=== PATIENT | male | born 1935 | race Caucasian/White ===

== ENCOUNTER 2017-12-01 02:42 | Observation (INO) | payer OTHER ==
[~2017-12-01] VITALS: Ht 172.7 cm; Wt 83.9 kg
[2017-12-01 16:53] LABS: ABSOLUTE BASOPHIL COUNT 0.1 /CUMM (0.0-0.2); ABSOLUTE EOSINOPHIL COUNT 0.2 /CUMM (0.0-0.7); ABSOLUTE MONOCYTE COUNT 0.5 /CUMM (0.10-0.60); BASOPHIL % 0.6 % (0.0-2.0); EOSINOPHIL % 1.3 % (0-5); HEMATOCRIT 40.9 % (42-52); MEAN CORPUSCULAR HGB 28.9 PG (27.0-31.0); MEAN CORPUSCULAR HGB CONC 33.3 G/DL (33.0-37.0); MEAN CORPUSCULAR VOLUME 86.9 FL (80.0-94.0); MEAN PLATELET VOLUME 7.5 FL (7.4-10.4); PLATELET COUNT 460 /CUMM (130-400); RBC DISTRIBUTION WIDTH 16.1 % (11.5-14.5); RED BLOOD CELL CT 4.71 /CUMM (4.70-6.10); WHITE BLOOD CELL COUNT 13.8 /CUMM (4.8-10.8)
[2017-12-01 16:54] LABS: GRANULOCYTE % 87.1 % (42.2-75.2)
--- NOTE | 2017-12-01 16:57 | RADIOLOGY REPORT ---
EXAMINATION: XR PORTABLE ABDOMEN CLINICAL INFORMATION: Status post TURP. Abdominal distention. COMPARISON: None. TECHNIQUE: AP view of the abdomen was obtained. FINDINGS: The bowel gas pattern is nonspecific. Feces is noted within the large bowel. The loops of bowel are not distended. The paravertebral soft tissues are unremarkable. There are no acute osseous findings; there are degenerative changes in the lower thoracic and in the lumbar spine. A monitor probe is noted in the inferior pelvis. IMPRESSION: 1. There is no evidence of bowel obstruction or free intra-abdominal air.
--- NOTE | 2017-12-01 17:44 | Operative Report ---
Operative/Inv Procedure Report Surgery Date: 12/01/17 Name of Procedure: Transurethral resection of prostate cystolitholapaxy and possible transurethral resection of bladder tumor Pre-Operative Diagnosis: Very large prostate with obstructing lateral lobes multiple bladder stones and possible area of abnormality on the bladder wall Post-Operative Diagnosis: Very large prostate lateral lobes and very large bladder stones that works excessively hard in nature. Estimated Blood Loss: less than 50ml Surgeon/Caser Up: Yoly Barajas MD Anesthesia: laryngeal mask airway Drains: 20 Swedish [place] Schultz Specimens: Prostate chips and bladder stone fragments Complications: Unable to fragment all the bladder stones due to difficulty in fragmenting them and already 2 hours in surgery with mild abdominal distention Condition: Stable Operative Indication: Obstructive prostate lobes and multiple bladder stones with possible bladder lesion Operative/Procedure Note Note: This is an 82-year-old male with a history of urinary retention and an on office cystoscopy was found to have very large lateral prostate lobes as well as very large multiple bladder stones with possible bladder mucosal abnormality. He was given the options of surgery with the risks benefits and alternatives of resecting the prostate tissue as well as addressing the bladder stones. Given the size and number of the stones it is clear he has had an obstructive prostate for quite some time. The risks benefits and alternatives of the surgery were given to the patient and his in the office as well as in the holding area. Consent was signed. Patient was taken to the operating placed on the operating table in supine position. timeout was performed and IV antibodies were infused. She was placed under LMA anesthesia and was prepped and draped in the standard sterile fashion. Cystoscopy was performed and it was difficult to traverse the penile urethra and prostatic urethra into the bladder. The 2 false passages were created. Once the cystoscope was placed into the bladder a Solo wire was placed for easier navigation. Given the difficulty of the cystoscopy view was decided to do the transurethral resection of the prostate first. This resectoscope was placed following the guidewire was easily placed into the bladder. The left lateral lobe was resected first starting at 3:00 going down the 6:00 and 3:00 to 12:00 o'clock. Point coagulation was performed throughout the surgery. Attention was then turned to the right lateral lobe of the prostate and was resected from 9 to 6:00 followed by 9 to 12:00. Point coagulation was performed again. He had a very large prostate and the resection took over an hour. This was done with bipolar energy and normal saline. Once the prostate was completely resected and all bleeding was stopped attention was then turned to the bladder stones. The resectoscope was removed and throughout the case the Ellik evacuator was used to remove the prostate chips. A cystoscope was placed back into the bladder and the 500+ micron fiber was used to fragment the bladder stones but it was not doing much and was switched out to the 1000 fiber. The bladder stones were chipped away at with the thousand micron fiber and was very laborious. After only chipping away at 1-1/2 of the bladder stones, another hour had passed and it was appropriate to finish the surgery another day. His abdomen was seen to be mildly distended. He was stable throughout the case with no issues. He did have to be switched out to an intubation from the LMA tube but had no cardiac issues. A 20 Swedish Councill catheter was placed over the wire and the balloon was filled with 10 mL of water. Bladder was emptied and patient was cleaned Betadine solution. Patient tolerated procedure well and was transferred to the recovery room in stable condition. Findings: Very large lateral prostate lobes and 3 very large bladder stones that were very hard in consistency and unable to address a bladder lesion as it was too bloody to see clearly. Discharge Disposition: PACU
[2017-12-01 19:17] VITALS: BP 140/70
[2017-12-01] MEDS ORDERED: PRAVASTATIN SOD40 M2 PO (20:39)
[2017-12-01] MEDS ORDERED: FLOMAX0.4 M1 PO (20:42)
[2017-12-01] MEDS ORDERED: TOPROL XL100 M1 PO (20:44)
[2017-12-01] MEDS ORDERED: PRINIVIL10 M1 PO (20:44)
[2017-12-01] MEDS ORDERED: PRAVACHOL40 M1 PO (20:45)
[2017-12-01] MEDS ORDERED: LUMIGAN2.5 ML OPH (20:45)
[2017-12-01 21:30] VITALS: BP 170/90
[2017-12-01 22:09] VITALS: BP 170/90
[2017-12-01 22:10] VITALS: BP 132/80
--- NOTE | 2017-12-01 22:59 | PN- Urology ---
Subjective Subjective: Pt is s/p elective TURP for BPH. He was scheduled to go home, but noted to be significantly distended postoperatively. Supine x-ray in pacu was negative for obstruction or free air and stool was noted in the colon. The decision was made to transfer pt [facility] floor for observation overnight. Upon arrival to the floor, he was stable, but distention seemed to worsen with time and he later c/o acute onset of suprapubic pain. He attempted having a BM, but was unable. He denies nausea. No flatus as of yet. When I arrived, pt was noted to be writhing in pain and tachypneic at 36-40 bpm. Most recent BP was 170/90. Sats 93% on 2L O2 via NC. He was given 2 mg of morphine, which improved symptoms only slightly and for a short time. Davidson remains in place (not on CBI) with 125 cc of bloody output since arrival to the floor. He admits to feeling weak and slightly short of breath, but otherwise denies headache, dizziness, chest pain. Objective Vital Signs and I&Os Vital Signs Date Time Temp Pulse Resp B/P B/P Pulse O2 O2 Flow FiO2 Mean Ox Delivery Rate 12/01 2210 97.3 60 20 132/80 93 12/01 2130 97.9 64 36 170/90 93 Nasal 2.0L Cannula 12/02 1999 93 Nasal 2.0L Cannula 12/01 1916 97.6 58 18 140/70 97 Nasal 2.0L Cannula Intake & Output 12/01 1600 12/01 0800 12/01 0000 11/30 1600 11/30 0800 11/30 0000 Intake Total Output Total Balance Patient 185 lb Weight Physical Exam: Gen: Pt is awake, but appears very uncomfortable and is writhing in pain. He is visibly tachypneic. Alert and oriented. Cardiac: regular Lungs: BS are distant, but clear Abdomen: Significant distention and tympany to percussion are noted across the upper abdomen superior to umbilicus. He is tender only in the suprapubic area, which is nondistended. No rebound tenderness is noted. No BS were heard. Results Last 48 Hours of Labs: Laboratory Tests 12/01 1640 Chemistry Sodium (137 - 145 mmol/L) 139 Potassium (3.5 - 5.1 mmol/L) 5.0 Chloride (98 - 107 mmol/L) 112 H Carbon Dioxide (22 - 30 mmol/L) 20 L Anion Gap (5 - 16) 8 BUN (9 - 20 mg/dL) 15 Creatinine (0.7 - 1.2 mg/dL) 1.0 Estimated GFR (>60 ml/min) > 60 BUN/Creatinine Ratio (7 - 25 %) 15.0 Hematology CBC w Diff NO MAN DIFF REQ WBC (4.8 - 10.8 /CUMM) 13.8 H RBC (4.70 - 6.10 /CUMM) 4.71 Hgb (14.0 - 18.0 G/DL) 13.6 L Hct (42 - 52 %) 40.9 L MCV (80.0 - 94.0 FL) 86.9 MCH (27.0 - 31.0 PG) 28.9 MCHC (33.0 - 37.0 G/DL) 33.3 RDW (11.5 - 14.5 %) 16.1 H Plt Count (130 - 400 /CUMM) 460 H MPV (7.4 - 10.4 FL) 7.5 Gran % (42.2 - 75.2 %) 87.1 H Lymphocytes % (20.5 - 51.1 %) 7.4 L Monocytes % (1.7 - 9.3 %) 3.6 Eosinophils % (0 - 5 %) 1.3 Basophils % (0.0 - 2.0 %) 0.6 Absolute Granulocytes (1.4 - 6.5 /CUMM) 12.0 H Absolute Lymphocytes (1.2 - 3.4 /CUMM) 1.0 L Absolute Monocytes (0.10 - 0.60 /CUMM) 0.5 Absolute Eosinophils (0.0 - 0.7 /CUMM) 0.2 Absolute Basophils (0.0 - 0.2 /CUMM) 0.1 Assessment/Plan Assessment/Plan Pt is an 82 yo M, s/p TURP, admitted for postop distention. Now with worsening distention and increasing pain, only minimally responsive to IV pain meds. -Urgent CT abdomen/pelvis now. -Keep pt npo until source of distention is identified. -Continue IVF. Increase rate to 75cc/hour. -SC heparin and alps for DVT ppx. -Morphine as needed for pain control. -Home meds resumed. -Keep davidson in place. No CBI for now. Will monitor urine output. -This was discussed with Dr. Yadav, who is covering for Dr. Barajas and he agrees with this plan. Core Measures Venous Thromboembolism VTE Risk Factors Surgery No Mechanical VTE Prophylaxis d/t N/A MechProphylax Ordered No VTE Pharm Prophylaxis d/t NA PharmProphylax ordered
--- NOTE | 2017-12-01 23:59 | CT SCAN REPORT ---
EXAMINATION: CT ABDOMEN AND PELVIS WITH CONTRAST CLINICAL INFORMATION: Abdominal pain and distention. COMPARISON: None TECHNIQUE: Multidetector volumetric imaging was performed of the abdomen and pelvis following IV administration of 95 mL of Optiray 320 intravenous contrast. Sagittal and coronal reformatted images were obtained on the technologist's workstation. DLP: 151.61 mGy-cm FINDINGS: LUNG BASES: There is small bilateral pleural effusions with dependent atelectasis at the lung bases. LIVER, GALLBLADDER, AND BILIARY TREE: There is diffuse low attenuation of liver parenchyma due to fatty change. There is no focal liver lesion. There is no intrahepatic bile duct dilatation. Right lobe liver measures 21 cm superior inferior, mild hepatomegaly. The gallbladder is unremarkable with no evidence of radiopaque gallstones, gallbladder wall thickening, or obvious pericholecystic inflammatory changes. PANCREAS: Unremarkable. SPLEEN: Unremarkable. ADRENAL GLANDS: Unremarkable. KIDNEYS AND URETERS: The kidneys are normal in size, shape, and attenuation. No hydronephrosis, hydroureter, or calculi seen. No perinephric stranding. BLADDER: There is a Schultz catheter is low in position within the prostate. There is air in the bladder. There are multiple coarse calcifications in the prostate. These calcifications could be the bladder stones which have move down into the urethra. (The patient history is that the patient has had a TURP procedure today.) There are also multiple calcified bladder stones in the dependent bladder. Largest in measures 2 cm in length. There are multiple focal collections of air in the soft tissues around the dome of the bladder. GASTROINTESTINAL TRACT: There is marked diverticulosis of the colon. Cannot assess for pericolonic edema given the presence of the abdominal ascites. There is a diverticulum of the third portion of the duodenum measuring about 3 cm. Mesentery and retroperitoneum: There is a large volume of fluid in the peritoneal cavity as well as in the retroperitoneum the posterior pararenal space and along the anterior pararenal fascia. Fluid extends down around the bladder. This fluid has a density measurement of 5 Hounsfield units, simple fluid. There is no evidence of hemorrhage. There is free air around the bladder level in the pelvis. ABDOMINAL WALL: No significant hernia is appreciated. LYMPH NODES: Normal. VASCULAR: There is atherosclerotic vascular calcifications of aorta. There is a saccular aneurysm of the distal aorta measuring 2.4 cm transverse. PELVIC VISCERA: Prostate measures 5 cm transverse with multiple coarse calcifications in the prostate. OSSEOUS STRUCTURES: Degenerative spondylosis spine multilevel disc height narrowing and plate spurring and facet joint arthrosis. IMPRESSION: 1. There is gas around the dome of the bladder in the mesentery. There is also air within the bladder. Patient has a Schultz catheter and the catheter is low in position within the prostate. 2. Multiple bladder stones. There are calcifications within the prostate which may be bladder stones extending down into the prostatic urethra. 3. Large volume of abdominal ascites. There is fluid in the retroperitoneum as well. This fluid is low in attenuation, simple fluid. 4. Hepatosplenomegaly. Diffuse fatty change of liver. 5. 2.4 cm abdominal aortic aneurysm. 6. Diverticulosis of colon. Cannot exclude diverticulitis in the presence of abdominal ascites. Incidental duodenal diverticulum. This critical result was discussed with HI Kumari on 12/01/2017, 11:31 PM and it was ascertained that the content and urgency of the report was understood at the time of direct communication.
--- NOTE | 2017-12-02 02:52 | PN- Urology ---
Surgical Brief Attending Note Brief Attending Note: Patient had abdominal pain, distention and hematuria. CT scan showed davidson balloon in prostatic urethra, significant ascites and extraluminal air around bladder. Davidson removed but could not be replaced by PA. With some difficulty a 22 fr 3-way hematuria catheter was placed with return of 250 cc of moderately bloody urine. Will leave to gravity drainage without CBI and observe
[2017-12-02 06:00] VITALS: BP 140/76
[2017-12-02 09:31] LABS: ABSOLUTE BASOPHIL COUNT 0 /CUMM (0.0-0.2); ABSOLUTE EOSINOPHIL COUNT 0.1 /CUMM (0.0-0.7); ABSOLUTE GRANULOCYTE CT 11.2 /CUMM (1.4-6.5); ABSOLUTE MONOCYTE COUNT 0.7 /CUMM (0.10-0.60); BASOPHIL % 0.2 % (0.0-2.0); EOSINOPHIL % 0.4 % (0-5); HEMATOCRIT 38.9 % (42-52); MEAN CORPUSCULAR HGB 28.9 PG (27.0-31.0); MEAN CORPUSCULAR VOLUME 87.4 FL (80.0-94.0); MEAN PLATELET VOLUME 8.2 FL (7.4-10.4); PLATELET COUNT 477 /CUMM (130-400); RBC DISTRIBUTION WIDTH 15.9 % (11.5-14.5); RED BLOOD CELL CT 4.45 /CUMM (4.70-6.10)
--- NOTE | 2017-12-02 10:45 | PN- Urology ---
Subjective Subjective: Feels better. No further abd pain Objective Vital Signs and I&Os Vital Signs Date Time Temp Pulse Resp B/P B/P Pulse O2 O2 Flow FiO2 Mean Ox Delivery Rate 12/03 907 71 144/72 12/02 0908 71 144/72 12/02 0904 71 140/76 12/02 0600 98.1 67 16 140/76 95 Nasal Cannula 12/02 0000 93 Nasal 2.0L Cannula 12/01 2210 97.3 60 20 132/80 93 12/01 2130 97.9 64 36 170/90 93 Nasal 2.0L Cannula 12/01 Nasal 2.0L Cannula 12/01 191 97.6 58 18 140/70 97 Nasal 2.0L Cannula Intake & Output 12/02 1600 12/02 0800 12/02 0000 12/01 1600 12/01 0812/01 0000 Intake Total 650 100 Output Total 950 125 Balance -300 -25 Intake, IV 600 Intake, Oral 50 100 Number 0 Bowel Movements Output, Urine 950 125 Patient 185 lb Weight Abd: distended but soft and non tender Genitalia: [address] Draining light bloody urine Extrems: no calf tenderness Laboratory Tests 12/02 12/01 0618 1640 Chemistry Sodium (137 - 145 mmol/L) 139 139 Potassium (3.5 - 5.1 mmol/L) 4.7 5.0 Chloride (98 - 107 mmol/L) 107 112 H Carbon Dioxide (22 - 30 mmol/L) 22 20 L Anion Gap (5 - 16) 10 8 BUN (9 - 20 mg/dL) 16 15 Creatinine (0.7 - 1.2 mg/dL) 1.2 1.0 Estimated GFR (>60 ml/min) 58 L > 60 BUN/Creatinine Ratio (7 - 25 %) 13.3 15.0 Hematology CBC w Diff Pending NO MAN DIFF REQ WBC (4.8 - 10.8 /CUMM) Pending 13.8 H RBC (4.70 - 6.10 /CUMM) Pending 4.71 Hgb (14.0 - 18.0 G/DL) Pending 13.6 L Hct (42 - 52 %) Pending 40.9 L MCV (80.0 - 94.0 FL) Pending 86.9 MCH (27.0 - 31.0 PG) Pending 28.9 MCHC (33.0 - 37.0 G/DL) Pending 33.3 RDW (11.5 - 14.5 %) Pending 16.1 H Plt Count (130 - 400 /CUMM) Pending 460 H MPV (7.4 - 10.4 FL) Pending 7.5 Gran % (42.2 - 75.2 %) Pending 87.1 H Lymphocytes % (20.5 - 51.1 %) Pending 7.4 L Monocytes % (1.7 - 9.3 %) Pending 3.6 Eosinophils % (0 - 5 %) Pending 1.3 Basophils % (0.0 - 2.0 %) Pending 0.6 Absolute Granulocytes (1.4 - 6.5 /CUMM) Pending 12.0 H Absolute Lymphocytes (1.2 - 3.4 /CUMM) Pending 1.0 L Absolute Monocytes (0.10 - 0.60 /CUMM) Pending 0.5 Absolute Eosinophils (0.0 - 0.7 /CUMM) Pending 0.2 Absolute Basophils (0.0 - 0.2 /CUMM) Pending 0.1 Assessment/Plan Assessment/Plan Imp: 1. s/p TURP and laser litho of bladder stones 2. Some retroperitoneal and intraperitoneal fluid extrasation Plan: 1. Continue davidson 2. Advance diet and hep lock IV 3. Ambulate 4. Anticipate discharge tomorow with davidson and VNA 5. Will need repeat procedure for laser litho of remaining bladder stones Core Measures Venous Thromboembolism VTE Risk Factors Surgery No Mechanical VTE Prophylaxis d/t N/A MechProphylax Ordered No VTE Pharm Prophylaxis d/t NA PharmProphylax ordered
[2017-12-02 10:54] LABS: GRANULOCYTE % 85.9 % (42.2-75.2)
[2017-12-02 14:10] VITALS: BP 130/60
[2017-12-02 19:50] VITALS: BP 128/64
[2017-12-03 06:56] VITALS: BP 118/66
--- NOTE | 2017-12-03 08:17 | PN- Urology ---
See Addendum Subjective Subjective: Comfortable Objective Vital Signs and I&Os Vital Signs Date Time Temp Pulse Resp B/P B/P Pulse O2 O2 Flow FiO2 Mean Ox Delivery Rate 12/03 0656 98.5 67 18 118/66 92 Room Air 12/03 0000 93 Room Air 12/02 1950 98.4 68 20 128/64 93 12/02 1410 97.8 75 20 130/60 93 Room Air 12/02 1113 71 144/72 12/02 0908 71 144/72 12/02 0908 71 144/72 Intake & Output 12/03 1600 12/03 0800 12/03 0000 12/02 1600 12/02 0800 12/02 0000 Intake Total 50 300 1320 650 100 Output Total 800 1150 1500 950 125 Balance -750 -850 -180 -300 -25 Intake, IV 0 600 600 Intake, Oral 50 300 720 50 100 Number 0 0 0 Bowel Movements Output, Urine 800 1150 1500 950 125 Patient 185 lb Weight Abd: soft and non tender. Mild distention Genitalia: 3-way davidson in place. Inflow port capped. Urine mostly clear Extrems: venodynes in place. No calf tenderness Today's labs pending Assessment/Plan Assessment/Plan Imp: 1. Stable s/p laser lithotripsy of bladder stones and TURP Plan: 1. Will discharge home today with davidson 2. office f/u in 1-2 weeks Core Measures Venous Thromboembolism VTE Risk Factors Surgery No Mechanical VTE Prophylaxis d/t N/A MechProphylax Ordered No VTE Pharm Prophylaxis d/t NA PharmProphylax ordered
--- NOTE | 2017-12-03 08:26 | Discharge Summary ---
Visit Information Visit Dates Admission Date: 12/01/17 Discharge Date: 12/03/17 Hospital Course Course Attending Physician: Yoly Barajas MD Primary Care Physician: Kd WARREN,Yasir Black Hospital Course: Underwent TURP and laser litho of bladder stones. Some bladder stones remain in place due to difficulty fragmenting them. Now home with davidson Complications: Some fluid extravasation Allergies: Coded Allergies: No Known Allergies (10/26/17) Significant Procedures: Cystoscopy, TURP and laser litho of bladder stones Disposition Summary Disposition Principal Diagnosis: BPH Additional Diagnosis: Bladder calculi Discharge Disposition: home or self care Discharge Instructions General Discharge Information Code Status: Full Code Patient's Diet: Regular Patient's Activity: Light only for 1 week Follow-Up Instructions/Appts: Call office and make appointment for about 1 week Medications at Discharge Discharge Medications: Continue taking these medications: Tamsulosin HCl (Flomax) 0.4 MG CAP.ER.24H 1 Capsule ORAL DAILY Lisinopril (Prinivil) 10 MG TABLET 1 Tablet ORAL DAILY Metoprolol Succ XL (Toprol XL) 100 MG TAB.ER.24H 1 Tablet ORAL DAILY Bimatoprost (Lumigan) 0.01 % DROPS 1 Drop In the eye Every night Pravastatin Sodium (Pravachol) 40 MG TABLET 1 Tablet ORAL 5 PM Copies To: Kd WARREN,Yasir Black
[2017-12-03 08:58] VITALS: BP 118/66
== END 2017-12-03 13:00 | disposition home health service (06) ==
LOC: STS 02:42 → PACUH 18:08 → ENRESERV 18:16 → ENTRNSPT 18:51 → EDTRNSPT 19:11 → EDTRNSPTSTS 19:11 → 2NA 19:12 → CMPTRNSPT 19:26 → ENPENDDIS 12-03 08:49 → ENTRNSPT 12-03 12:51 → EDTRNSPT 12-03 12:57 → EDTRNSPTSTS 12-03 12:57 → 2NA 12-03 13:00 → CMPTRNSPT 12-03 13:16
PROVIDERS: Physician Assistant Surgical; Urology
DX: C61 Malignant neoplasm of prostate (principal); N40.1 Benign prostatic hyperplasia with lower urinary tract symptoms; N13.8 Other obstructive and reflux uropathy; I10 Essential (primary) hypertension; F17.200 Nicotine dependence, unspecified, uncomplicated; E78.00 Pure hypercholesterolemia, unspecified
CPT/HCPCS: 1328; 1530; 1748; 36592; 74018; 74177; 82436; 88305; 96372; 96374; G0378; J0131; J0690; J1644; J7042; J7508